=== PATIENT | female | born 1975 | race American Indian/Alaskan Native ===

== ENCOUNTER 2017-02-14 11:09 | Emergency (ER) | payer OTHER ==
--- NOTE | 2017-02-14 16:13 | Emergency Department Report ---
ED Eye Problem HPI - General Stated complaint: HIGH BLOOD PRESSURE Time Seen by Provider: 02/14/17 14:52 Source: patient Mode of arrival: Ambulatory Limitations: No Limitations - History of Present Illness Initial comments: 41-year-old female past medical history hypertension sent in by tobacco educator to rule out acute angle glaucoma. Patient states that she went to a tobacco educator for several months of blurry vision. States that she was told that her eye pressure may be high which is why she came to the ER. Originally went to urgent care but was deferred to the ED. Patient states that she occasionally gets headaches and that her vision has gotten progressively worse over the last several months. Denies any fever or chills no photo or phonophobia patient is awake alert and oriented 3 not in acute distress. Denies any palpitations chest pain shortness of breath nausea vomiting abdominal pain. Denies any floaters. States that she should be wearing glasses but does not, does not work contact lenses. Denies any trauma to the eyes. Denies any watery or purulent drainage from her eyes. chief complaint: vision change Onset/Timin -: month(s) Onset Description: gradual Location: both eyes Place: home Consistency: intermittent - Related Data Previous Rx's Medication Instructions Recorded Last Taken Type Acetaminophen [Tylenol] 500 mg PO Q8H PRN #1 bottle 02/14/17 Unknown Rx Ferrous Sulfate [Feosol 325 MG tab] 325 mg PO QDAY #30 tablet 02/14/17 Unknown Rx Timolol 0.25% (Nf) [Timoptic Ophth 1 drops OP BID #1 bottle 02/14/17 Unknown Rx Soln 0.25%] amLODIPine [Norvasc] 5 mg PO DAILY #30 tab 02/14/17 Unknown Rx Allergies Allergy/AdvReac Type Severity Reaction Status Date / Time Penicillins Allergy Unknown Verified 02/14/17 11:43 ED Review of Systems ROS: Stated complaint: HIGH BLOOD PRESSURE Other details as noted in HPI Constitutional: denies: chills, fever Eyes: as per HPI, vision change (gradual blurry vision over several months). denies: eye pain, eye discharge ENT: denies: ear pain, throat pain Respiratory: denies: cough, shortness of breath, wheezing Cardiovascular: denies: chest pain, palpitations Endocrine: no symptoms reported Gastrointestinal: denies: abdominal pain, nausea, diarrhea Genitourinary: denies: urgency, dysuria, discharge Musculoskeletal: denies: back pain, joint swelling, arthralgia Skin: denies: rash, lesions Neurological: denies: headache, weakness, paresthesias Psychiatric: denies: anxiety, depression Hematological/Lymphatic: denies: easy bleeding, easy bruising ED Past Medical Hx - Past Medical History Hx Hypertension: Yes Hx Asthma: Yes Additional medical history: anemia, Arrhythmia/Palpitations, stomach ulcer, pattrial gastrectomy 40years ago - Social History Smoking Status: Current Every Day Smoker - Medications Home Medications: Home Medications Medication Instructions Recorded Confirmed Last Taken Type Acetaminophen [Tylenol] 500 mg PO Q8H PRN #1 bottle 02/14/17 Unknown Rx Ferrous Sulfate [Feosol 325 MG tab] 325 mg PO QDAY #30 tablet 02/14/17 Unknown Rx Timolol 0.25% (Nf) [Timoptic Ophth 1 drops OP BID #1 bottle 02/14/17 Unknown Rx Soln 0.25%] amLODIPine [Norvasc] 5 mg PO DAILY #30 tab 02/14/17 Unknown Rx ED Physical Exam - General Limitations: No Limitations General appearance: alert, in no apparent distress - Head Head exam: Present: atraumatic, normocephalic - Eye Eye exam: Present: normal appearance, PERRL, EOMI - Expanded Eye Exam Expanded Pupils: Regular, Round: Bilateral, Reactive: Bilateral Visual acuity (R) = 20/: 70 Visual acuity (L) = 20/: 50 With correction: No IOP (R) in mmH (average of 3 IOPs) IOP (L) in mmH (average of 3 IOPs) IOP measured with: Tonopen - ENT ENT exam: Present: mucous membranes moist - Neck Neck exam: Present: normal inspection, full ROM - Respiratory Respiratory exam: Present: normal lung sounds bilaterally. Absent: respiratory distress - Cardiovascular Cardiovascular Exam: Present: regular rate, normal rhythm. Absent: systolic murmur, diastolic murmur, rubs, gallop - GI/Abdominal GI/Abdominal exam: Present: soft, normal bowel sounds - Extremities Exam Extremities exam: Present: normal inspection - Back Exam Back exam: Present: normal inspection - Neurological Exam Neurological exam: Present: alert, oriented X3, CN II-XII intact, normal gait - Expanded Neurological Exam Expanded Patient oriented to: Present: person, place, time Cranial nerves: EOM's Intact: Normal, Facial Sensation: Normal Cerebellar function: Finger to Nose: Normal, Heel to Thompson: Normal, Romberg: Normal Sensory exam: Upper Extremity Light Touch: Normal, Lower Extremity Light Touch: Normal Motor strength exam: RUE: 5, LUE: 5, RLE: 5, LLE: 5 DTR: tricep (R): 3+, tricep (L): 3+, knee (R): 3+, knee (L): 3+ Best Eye Response ([place]): (4) open spontaneously Best Motor Response ([place]): (6) obeys commands Best Verbal Response ([place]): (5) oriented Candi Total: 15 - Psychiatric Psychiatric exam: Present: normal affect, normal mood - Skin Skin exam: Present: warm, dry, intact, normal color. Absent: rash ED Course Vital Signs 02/14/17 02/14/17 02/14/17 11:19 17:30 20:43 Temperature 98.2 F Pulse Rate 76 63 73 Respiratory 16 20 18 Rate Blood Pressure 158/84 Blood Pressure 158/84 155/85 163/96 [Left] O2 Sat by Pulse 100 100 100 Oximetry ED Medical Decision Making - Lab Data Result diagrams: 02/14/17 17:36 02/14/17 17:36 - Medical Decision Making A/P: Blurry vision, increased ocular pressure, uncontrolled hypertension, anemia 1-patient states she is currently on iron supplementation denies any active bleeding does state that she occasionally gets heavy menstrual periods. Has had bilateral fallopian tube resection and oopherectomy secondary to ectopic pregnancies 2-case discussed and reviewed with Dr. Hoff before discharge 3-I will refer patient to ophthalmology and neurology 4-intraocular pressures checked 3 times right eye 3 times left eye and right eye average pressure 21 in left eye average pressure 17 , overall visual acutiy 20/50. RE 20/70, left eye 20/50. I urged the patient to make a follow-up appointment with ophthalmology this week. This is to mitigate any long-term vision loss or blindness and I explained the importance of the patient to follow up with ophthalmology and neurology, she stated she understood and would do so. As patient has slightly increased intraocular pressure As per [email or web address]- [email or web address] recommendations I will start patient empirically on some low and referred ophthalmology [email or web address] 6- patient states she has not been compliant with her hypertension medicine I will refill her amlodipine at low dose and refer to primary care Critical care attestation.: If time is entered above; I have spent that time in minutes in the direct care of this critically ill patient, excluding procedure time. 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, bilateral Disposition: TO HOME OR SELFCARE Is pt being admited?: No Does the pt Need Aspirin: No Condition: Stable Instructions: Glaucoma (ED), Iron Rich Diet (ED), Iron Deficiency Anemia (ED), Hypertension (ED) Prescriptions: Acetaminophen [Tylenol] 500 mg PO Q8H PRN #1 bottle PRN Reason: Pain amLODIPine [Norvasc] 5 mg PO DAILY #30 tab Ferrous Sulfate [Feosol 325 MG tab] 325 mg PO QDAY #30 tablet Timolol 0.25% (Nf) [Timoptic Ophth Soln 0.25%] 1 drops OP BID #1 bottle Referrals: KOBI CHAVEZ MD [Staff Physician] - 3-5 Days GENIE HAGAN MD [Staff Physician] - 3-5 Days NAM BACON MD [Staff Physician] - 3-5 Days MANDY BAER MD [Staff Physician] - 3-5 Days Forms: Work/School Release Form(ED) Time of Disposition: 20:12
[2017-02-14 18:08] LABS: Basophils % (Auto) 0.7 % (0.0-1.8); Eosinophils % (Auto) 2.2 % (0.0-4.3); Mean Corpuscular HGB Conc 29 % (30-34); Platelet Count 358 K/mm3 (140-440); Red Blood Count 4.63 M/mm3 (3.65-5.03); White Blood Count 8.7 K/mm3 (4.5-11.0)
[2017-02-14 18:10] LABS: Hematocrit 30.4 % (30.3-42.9); Hemoglobin 8.8 gm/dl (10.1-14.3); Mean Corpuscular Hemoglobin 19 pg (28-32); Mean Corpuscular Volume 66 fl (79-97); Red Cell Distribution Width 20.4 % (13.2-15.2)
[2017-02-14 18:11] LABS: Alanine Aminotransferase 10 units/L (7-56); Albumin 3.8 g/dL (3.9-5); Albumin/Globulin Ratio 1.2 %; Alkaline Phosphatase 64 units/L (35-129); BUN/Creatinine Ratio 14.28; Blood Urea Nitrogen 10 mg/dL (7-17); Calcium 8.5 mg/dL (8.4-10.2); Carbon Dioxide 25 mmol/L (22-30); Creatine Kinase 124 units/L (30-135); Glucose 88 mg/dL (65-100); Total Protein 6.9 g/dL (6.3-8.2)
[2017-02-14 18:12] LABS: Anion Gap 17 mmol/L; Chloride 101.5 mmol/L (98-107); Sodium 139 mmol/L (137-145)
[2017-02-14 18:13] LABS: Bilirubin,Direct < 0.2 mg/dL (0-0.2)
--- NOTE | 2017-02-14 18:41 | Cat Scan Report ---
FINAL REPORT PROCEDURE: CT HEAD/BRAIN WO CON TECHNIQUE: Computerized tomography of the head was performed without contrast material. HISTORY: papilledema, blurry vision COMPARISON: No prior studies are available for comparison. FINDINGS: Brain: Brain density appears normal. No evidence of intracranial hemorrhage. No parenchymal hemorrhage, mass lesions or mass effect are seen. No abnormal extraxial fluid collects or masses are seen. Ventricles: Ventricles are normal size and are midline. Bone Windows: No evidence of skull fracture. Paranasal sinuses: There is nodularity seen posteriorly inferiorly in the right maxillary sinus measuring up to 9 millimeters suggesting small mucous retention cysts or polyps. Paranasal sinuses otherwise appear clear. Mastoid air cells: Clear The optic nerves bilaterally appear mildly prominent, the right measures 5.3 millimeters in diameter the left 5.2 millimeters in diameter. IMPRESSION: Negative unenhanced CT of the brain. Minimal paranasal sinus disease as described. Optic nerves bilaterally minimally prominent. I cannot exclude optic neuritis. No discrete masses are seen.
[2017-02-14 19:49] LABS: Bilirubin,Urine NEG (Negative); Blood,Urine MOD (Negative); Ketones,Urine NEG (Negative); Leukocyte Esterase,Urine NEG (Negative); Nitrite,Urine NEG (Negative); Protein,Urine <15 mg/dL mg/dL (Negative); Urobilinogen,Urine < 2.0 mg/dL (<2.0); WBC,Urine < 1.0 /HPF (0.0-6.0)
[2017-02-14 20:44] VITALS: BP 163/96
== END 2017-02-14 20:43 | disposition home or self-care (01) ==
LOC: ED 11:09
DX: I10 Essential (primary) hypertension (principal); D64.9 Anemia, unspecified; H40.053 Ocular hypertension, bilateral; J45.909 Unspecified asthma, uncomplicated; F17.210 Nicotine dependence, cigarettes, uncomplicated; Z88.0 Allergy status to penicillin
CPT/HCPCS: 36415; 70450; 80048; 80074; 81001; 81025; 82550; 84484; 85025; 93005; 93010; 99284